=== PATIENT | female | born 1995 | race Caucasian/White ===

== ENCOUNTER 2016-06-20 01:28 | Emergency (ER) | payer BC ==
--- NOTE | 2016-06-20 01:36 | ED ---
Lower Extremity Injury HPI - General Chief Complaint: Extremity Injury, Lower Stated Complaint: knee injury Time Seen by Provider: 06/20/16 01:30 Source: patient, family, EMS, RN notes reviewed - History of Present Illness Initial Comments: This is a 21-year-old female with a benign past medical history who was trying to put her underwear on his prior to admission when she fell on the floor onto her right knee and now she cannot walk and cannot straighten her leg out. She is brought in by EMS clinically she appears to have a patellar subluxation. Also of note about one month ago she fell in the same knee when she was dancing while she was drunk per her mother and father. There was an x-ray done at that time which showed no fracture. Complains localized pain she was given morphine 4 mg followed by 3 mg per EMS. Pain somewhat improved was still moderate. No other injuries. She denies any head neck or back pain or other extremity injuries. She has not ALLERGIC to any medication. MD Complaint: knee injury - Related Data Home Medications Medication Instructions Recorded Confirmed Norgestimate-Ethinyl Estradiol 1 each PO DAILY 06/20/16 06/20/16 [Mononessa 28 Tablet] Sertraline [Zoloft] 50 mg PO DAILY 06/20/16 06/20/16 Allergies Allergy/AdvReac Type Severity Reaction Status Date / Time No Known Allergies Allergy Verified 06/20/16 01:39 Review of Systems ROS Statement: Those systems with pertinent positive or pertinent negative responses have been documented in the HPI. ROS Other: All systems not noted in ROS Statement are negative. General Exam - General Exam Comments Initial Comments: This is a well-developed well-nourished awake alert oriented history female she does demonstrate a Edmond Coma Scale of 15 General appearance: alert, anxious Head exam: Present: atraumatic, normocephalic, normal inspection Eye exam: Present: normal appearance, PERRL, EOMI. Absent: scleral icterus, conjunctival injection, periorbital swelling ENT exam: Present: normal exam Neck exam: Present: normal inspection. Absent: tenderness, meningismus, lymphadenopathy Respiratory exam: Present: normal lung sounds bilaterally. Absent: respiratory distress, wheezes, rales, rhonchi, stridor Cardiovascular Exam: Present: regular rate, normal rhythm, normal heart sounds. Absent: systolic murmur, diastolic murmur, rubs, gallop, clicks Rectal exam: Present: deferred Extremities exam: Present: tenderness, normal capillary refill, other (Finish the right lower extremity demonstrates lateral subluxation of the right patella with the leg held at about 90 flexion. Distally is no sensorimotor vascular deficits. No tenderness over the pelvis or over the hips to palpation.). Absent: calf tenderness Neurological exam: Present: alert, oriented X3, CN II-XII intact Psychiatric exam: Present: normal affect, normal mood Skin exam: Present: warm, dry, intact, normal color. Absent: rash Course Vital Signs 06/20/16 06/20/16 06/20/16 01:33 02:08 02:10 Temperature 97.9 F Pulse Rate 80 84 83 Respiratory 18 18 18 Rate Blood Pressure 128/71 135/79 116/62 O2 Sat by Pulse 98 100 98 Oximetry 06/20/16 02:15 Temperature Pulse Rate 83 Respiratory 18 Rate Blood Pressure 124/71 O2 Sat by Pulse 99 Oximetry - Reevaluation(s) Reevaluation #1: 06/20/16 02:46 The patient did have constant attention by me the initial injection propofol was at 2:10 AM. 10:22 AM the patient was started to arouse. Repeat x-ray showed good approximation of the patellar alignment. Procedures - Procedures Initial comment: The patient did demonstrate a lateral subluxation of the right patella. After the patient was sedated I did manually reduce the subluxation with extension and medial Some Pressure on the Patella until It Did Reveal Line. Post Reduction X-Ray Revealed and Alignment No Evidence of Any Fractures. - Procedural Sedation Procedural Sedation Start Time: 02:10 Procedural Sedation Stop Time: 02:35 ASA Class: I Midazolam: IV Midazolam Dose: 2 IV Propofol Dose (mgs): 60 Complications: none Interventions: oxygen applied Patient Tolerated Procedure: well Medical Decision Making - Medical Decision Making The patient is feeling much improved this time and will be discharged home with her parents she will be taking [id number] Aleve at her request. I will write a prescription for crutches she is a follow-up with her doctor or orthopedic surgery and return when necessary - Radiology Data Radiology results: report reviewed (Initial x-ray did show a patellar subluxation laterally), image reviewed Disposition Clinical Impression: Lateral subluxation of right patella Disposition: HOME SELF-CARE Condition: Good Instructions: Patellar Dislocation (ED) Referrals: Andreas Herrera III, MD [Primary Care Provider] - 1-2 days Cheikh Stout DO [Doctor of Osteopathic Medicine] - 1-2 days
[2016-06-20 01:39] VITALS: RESP 18; TEMP 97.9
[2016-06-20] MEDS ORDERED: PROPOFOL 10 MG/ML 50 ML VIAL IV STA (01:47)
[2016-06-20] MEDS ORDERED: MIDAZOLAM (PF) 1 MG/ML 5 ML VIAL IV STA (01:47)
--- NOTE | 2016-06-20 02:22 | XR ---
EXAMINATION TYPE: XR knee limited RT DATE OF EXAM: 06/20/2016 1:51 AM CLINICAL HISTORY: History of fall gross deformity right knee TECHNIQUE: Lateral and crosstable frontal radiograph of right knee were obtained. COMPARISON: None. FINDINGS: No definite acute fracture or dislocation is noted in these radiographs. There is [id number] soft tissue swelling around the right knee. There is small effusion in the left suprapatellar bursa.. IMPRESSION: There is no acute fracture or dislocation. Soft tissue swelling and effusion is noted. If clinically indicated MRI scan would be helpful. .ICD 10 NO FRACTURE, INITIAL EVALUATION
[2016-06-20 02:44] VITALS: PULSE 83
[2016-06-20 02:46] VITALS: BP 124/71
--- NOTE | 2016-06-20 03:00 | XR ---
EXAMINATION TYPE: XR knee limited RT DATE OF EXAM: 06/20/2016 2:27 AM CLINICAL HISTORY: Post reduction. TECHNIQUE: Three views of the right knee are obtained. COMPARISON: 06/20/2016. FINDINGS: Lateral and the AP radiographs of right knee were obtained status post reduction of the rig ht knee.. The right knee joint appears in better position with probable reduction of previous mild subluxation. Mild soft tissue swelling is noted. No obvious fracture is noted. There is mild effusion in the right knee joint and suprapatellar bursa. IMPRESSION: 1. Post reduction radiographs showed no definite acute fracture. There is interval reduction of proba ble subluxation changes of the right knee. 2. Effusion and soft tissue swelling. 3. No definite acute fracture is demonstrated in these radiographs of the right knee. The study is somewhat limited due to positioning in the AP view. If clinically indicated a CT scan or MRI scan would be helpful.
== END 2016-06-20 03:05 | disposition home or self-care (01) ==
LOC: EC 01:28
DX: S83.014A Lateral dislocation of right patella, initial encounter (principal); F32.9 Major depressive disorder, single episode, unspecified; Z79.3 Long term (current) use of hormonal contraceptives; Z79.899 Other long term (current) drug therapy; W13.3XXA Fall through floor, initial encounter
CPT/HCPCS: 99284; 27560; 99152; 73560; L1830; J2250; J2704